=== PATIENT | male | born 1965 | race Caucasian/White ===

== ENCOUNTER 2017-04-15 18:05 | Inpatient (IN) | payer OTHER ==
[~2017-04-15] VITALS: Ht 185.4 cm; Wt 110.8 kg
--- NOTE | ~2017-04-15 | EKG ---
[place] [address] [address] [place] [address] ELECTROCARDIOGRAM REPORT Name: CHINO CHADWICK Room #: REG ASHLIE Brown#: [id number] Admission: 04/15/17 Attend Phys: Discharge: Date of : 67 Report #: [id number] THIS REPORT FOR: //name// [facility] ED Test Date: 2017-04-15 Test Time: 19:25:32 Pat Name: CHINO CHADWICK Department: Room: Gender: Director Client Services: Niecy WOODY : 1965 Requested By: Tereso Geller Order Number: [id number] MD: Alfredo Myrick Measurements Intervals Adrian Rate: 111 P: 43 CT: 166 QRS: -32 QRSD: 95 T: 105 QT: 362 QTc: 492 Interpretive Statements Sinus tachycardia Left atrial enlargement Left axis deviation Probable anteroseptal infarct, recent No previous ECG available for comparison Electronically Signed On 04-15-2017 22:00:11 NUTRITION THERAPIST by Alfredo Myrick [email or web address] <ELECTRONICALLY SIGNED> By: Alfredo Myirck MD 04/15/170 24 192 Alfredo Myrick MD /RUDY
--- NOTE | ~2017-04-15 | 2DMMODE ---
[facility] [address] [place] [address] 2 D/M-MODE ECHOCARDIOGRAM Name: CHINO CHADWICK Room #: 361-P ADM IN M.R.#: [id number] Admission: 04/15/17 Attend Phys: Hiram Torres Discharge: Date of : 67 Date of Service: 04/16/17 1340 Report #: [id number] THIS REPORT FOR: //name// APPROVED REPORT Study performed: 04/16/2017 13:41:45 EXAM: Comprehensive 2D, Doppler, and color-flow Echocardiogram Patient Location: Echo lab Room #: [facility] Status: routine BSA: 2.31 BP: 100/69 mmHg Other Information Study Quality: Good, Technically Difficult Technically limited study due to Combative patient, inability to position patient. Indications Congestive Heart Failure Diabetes Murmur Chest Pain 2D Dimensions RVDd: 46.95 mm LVEF(%): 18.65 (>50%) IVSd: 11.15 (7-11mm) LVOT Diam: 22.52 (18-24mm) LVDd: 65.80 mm PWd: 11.82 (7-11mm) Ascending Ao: 31.82 (22-36mm) LVDs: 60.10 (25-40mm) Aortic Root: 31.60 mm IVC: 26.00 mm Greenberg's LVEF: 18.65 % Volumes Left Atrial Volume (Systole) Single Plane 4CH: 124.23 mL Single Plane 2CH: 115.73 mL LA ESV Index: 57.00 mL/m2 Aortic Valve AoV Peak Tristin.: 1.04 m/s AO Peak Gr.: 4.30 mmHg LVOT Max P.69 mmHg LVOT Max V: 0.82 m/s CORDELL Vmax: 3.15 cm2 [facility] [address] [employer] [address] [place] [address] 2 D/M-MODE ECHOCARDIOGRAM Name: NETTACHINO Room #: 361-P [facility] IN .R.#: [id number] Admission: 04/15/17 Attend Phys: Hiram Harper [facility] Discharge: Date of : 67 Date of Service: 04/16/17 1340 Report #: [id number] Mitral Valve E/A Ratio: 2.3 MV Decel. Time: 110.38 ms MV E Max Tristin.: 1.29 m/s MV A Tristin.: 0.57 m/s MV PHT: 32.01 ms IVRT: 72.66 ms Pulmonary Valve PV Peak Tristin.: 0.97 m/s PV Peak Gr.: 3.78 mmHg Tricuspid Valve TR Peak Tristin.: 2.84 m/s RAP Estimate: 15.00 mmHg TR Peak Gr.: 32.36 mmHg PA Pressure: 47.00 mmHg Left Ventricle Left ventricle is dilated. There is normal left ventricular wall thickness. Left ventricular systolic function is severely decreased. LVEF is approx 20% Right Ventricle Right ventricle is dilated. Right ventricle is hypokinetic. Atria Left atrium is severely dilated. Right atrium is dilated. Aortic Valve The aortic valve is normal in structure. Mild aortic regurgitation. There is no aortic valvular stenosis. Mitral Valve The mitral valve is mildly thickened. Moderate mitral regurgitation. No evidence of mitral valve stenosis. Tricuspid Valve The tricuspid valve is normal in structure. Severe tricuspid regurgitation. PAP is estimated at 47 mmHg. Pulmonic Valve The pulmonary valve is normal in structure. Mild pulmonic regurgitation. [employer] [facility] [address] [address] [place] [address] 2 D/M-MODE ECHOCARDIOGRAM Name: CHINO CHADWICK Room #: 361-P ADM IN M.R.#: [id number] Admission: 04/15/17 Attend Phys: Hiram Torres Discharge: Date of : 67 Date of Service: 04/16/17 1340 Report #: [id number] The aortic root is normal in size. IVC is dilated and collapses <50% with inspiration. Pericardium There is no pericardial effusion. <Conclusion> Left ventricle is dilated. LVEF is approx 20% Right ventricle is dilated. Right ventricle is hypokinetic. The aortic valve is normal in structure. Mild aortic regurgitation. The mitral valve is mildly thickened. Moderate mitral regurgitation. The tricuspid valve is normal in structure. Severe tricuspid regurgitation. PAP is estimated at 47 mmHg. The pulmonary valve is normal in structure. Mild pulmonic regurgitation. There is no pericardial effusion. <ELECTRONICALLY SIGNED> By: Naresh Barton MD 04/16/17 1340 39 39 Naresh Barton MD /INF
--- NOTE | ~2017-04-15 | CNG ---
[facility] [place] [address] CYTO-NONGYN REPORT PROCEDURE Name: FAIZARADHAPRAVEEN Khan Room #: 361-P ADM IN M.R.#: [id number] Admission: 04/15/17 Date of : 67 Discharge: Report #: [id number] Path Case #: [id number] CYTOPATHOLOGY REPORT COLLECTION DATE: 04/17/2017 RECEIVED DATE: 04/17/2017 SUBMITTING PHYS: Dr. Hiram Temple OTHER PHYS: Dr. Nnamdi Arrieta CLINICAL HISTORY: Hypoxia, Shortness of breath, brain cancer SPECIMEN(S) RECEIVED: A.Pleural fluid * * * * * * * * * * * * FINAL DIAGNOSIS: A. Pleural fluid: - No malignant epithelial cells identified. Reactive mesothelial cells are present. PATHOLOGIST: Nuvia Mike M.D. REPORT ELECTRONICALLY SIGNED BY: Nuvia Mike M.D. DATE/TIME: 04/20/2017 15:48 * * * * * * * * * * * * GROSS PATHOLOGY: A. Pleural fluid: The specimen is submitted unfixed, labeled "Praveen Chadwick". Received by the Cytology Department is 17 mL of clear yellow fluid. One ThinPrep slide and a formalin fixed cell block were prepared. (mm 04.17.2017) HEALTH CARE FACILITIES INSPECTOR(S): CELY Romero[facility] INITIAL CPT CODE(S): A; 27853, 19347 Professional services performed by [facility] at [facility] [address], [place] [address] Technical services performed by [facility] at [address] [place] [address]., [address], [place] [address]. [facility] [address] [place] [address], [address] [place] [address] PHONE: [phone] DIRECTOR: Taj Fernandez M.D. [facility] [address] [place] [address] CYTO-NONGYN REPORT PROCEDURE Name: PRAVEEN CHADWICK Room #: 361-P ADM IN M.R.#: [id number] Admission: 04/15/17 Date of : 67 Discharge: Report #: [id number] Path Case #: [id number] * * * END OF REPORT * * *
--- NOTE | ~2017-04-15 | HC ---
[facility] [place] [address] [place] [address] CONSULTATION Name: CHINO CHADWICK Room #: 361-P [facility] IN M.R.#: [id number] Admission: 04/15/17 Attend Phys: Hiram Temple Discharge: Date of : 67 Report #: [id number] THIS REPORT FOR: //name// CC: FAM unknown Hiram Temple DATE OF SERVICE: 04/20/2017 HISTORY OF PRESENT ILLNESS: This is a 51-year-old white male with history of diabetes mellitus, COPD, prior coronary artery bypass grafting, history of bipolar disorder, prior multiple mild strokes, severe cardiomyopathy who was admitted with problems with gait and speech. There was a questionable history of terminal brain cancer, although it does not appear that the hospital records from outside facility support this. He was seen by Pulmonary Medicine diagnosed with a right pleural effusion, who underwent large volume thoracentesis transition thought likely related to underlying congestive heart failure. He was noted to have acute on chronic systolic left and right heart failure, although he did refuse his diuretics before. He was noted to have ascites, encephalopathy and cellulitis. Recommendation was for nocturnal CPAP, although he was not cooperative with this. We are seeing him in rehabilitation medicine consultation. PAST MEDICAL HISTORY: There is a note of bipolar disorder, multiple mild strokes as noted, he apparently has a severe cardiomyopathy and case management notes indicate that a LifeVest was arrived to the patient's mother's home. The patient apparently has not allowed his family to attend medical appointments with him. MEDICATIONS: Please see the full medication listing. SOCIAL HISTORY: The patient had been living with his parents up to about a year ago and then recently moved in with 3 roommate. The patient's mother did not know where that address or where he currently lives is. He is using a cane to get around. REVIEW OF SYSTEMS: He did not offer any current complaints of chest pain, shortness of breath, abdominal discomfort. PHYSICAL EXAMINATION: A 51-year-old white male with sleeping would easily arouse, appeared older than stated age. He was uncertain which day it was. He could follow basic 1-step commands without difficulty. He does have significant lower extremity edema 1 to 2+ upper extremities, multiple tattoos, functional range of motion strength is probably grade 4-/5. Lower extremities functional range of motion strength is probably a grade 3+ to 4-/5. Transfers have been contact guard and he has ambulated 5 feet contact guard. [facility] [address] [place] [address] CONSULTATION Name: CHINO CHADWICK Room #: 361-P [facility] IN ..#: [id number] Admission: 04/15/17 Attend Phys: Hiram Temple Discharge: Date of : 67 Report #: [id number] ASSESSMENT: A 51-year-old white male with the following problem list: 1. Acute on chronic systolic left and right heart failure. 2. Right pleural effusion. 3. Severe cardiomyopathy. He had a LifeVest delivered to his parents' home. 4. Ascites 5. Encephalopathy. 6. Question of a terminal brain tumor, although medical records apparently do not support this. This is what the patient has been saying, however. 7. Substance abuse. 8. Diabetes mellitus type 2. PLAN: I agree with discharge disposition to a half-way facility unit as per the discharge dictation. Case management indicates that the patient's mother stated that the patient is unable to live independently. Thank you for asking us to assist in this patient's care. <ELECTRONICALLY SIGNED> By: Mike Nathan MD 04/23/17 [id number] Mike Nathan MD /[facility]
--- NOTE | ~2017-04-15 | HC ---
[facility] [place] [place] [address] CONSULTATION Name: CHINO CHADWICK Room #: 361-P ADM IN M.R.#: [id number] Admission: 04/15/17 Attend Phys: Hiram Temple Discharge: Date of : 67 Report #: [id number] THIS REPORT FOR: //name// CC: FAM unknown Hiram Temple DATE OF SERVICE: 04/16/2017 REFERRING PROVIDER: Hiram Temple MD REASON FOR CONSULTATION: Shortness of breath and hypoxemia. HISTORY OF PRESENT ILLNESS: Our group is called late this morning for consultation on this patient. The patient is difficult to arouse, very somnolent and received some morphine earlier today and some Haldol due to lack of cooperation with healthcare providers, unable to get any history from the patient at this time. Currently, mother is somewhat estranged and does not have additional history. History taken from review of records and discussion with healthcare providers. He is a 51-year-old male with a known history of coronary artery disease with coronary artery bypass grafting, unclear time frame, as well as history of COPD, diabetes mellitus type 2, presented to the Emergency Department yesterday evening with complaints of increased shortness of breath, apparently has no cough or congestion. Does have a history of congestive heart failure. Chest x-ray and then CT chest PE protocol revealed moderate-sized right pleural effusion without infiltrates to suggest pneumonia. Head CT was done due to his reported history of brain cancer, although CT without contrast was clear, no acute process. The patient denied being on any therapy. As described overnight, received some diuresis, was having some combativeness, was removing pulse oximetry and other monitoring devices, was sedated with 1 mg of Haldol, now is not responsive in fact at bedside. The patient is having periodic breathing with periods of apnea and hyperpnea, intermittent, otherwise does not appear in any distress at this time. Of note was also started on vancomycin for presumed cellulitis over his left lower extremity. ALLERGIES: None known. PAST MEDICAL HISTORY: 1. History of coronary artery disease with coronary artery bypass grafting. 2. History of congestive heart failure of unclear ejection fraction. 3. Diabetes mellitus type 2. 4. Underlying COPD, severity not quantified. 5. ? History of malignancy of the brain. 6. History of tobacco use. 7. History of substance abuse including methamphetamine. SOCIAL HISTORY: Tobacco use, substance abuse as described. [address] [address] CONSULTATION Name: CHINO CHADWICK Room #: 361-P [facility] IN M.R.#: [id number] Admission: 04/15/17 Attend Phys: Hiram Temple Discharge: Date of : 67 Report #: [id number] FAMILY HISTORY: Unobtainable due to his current status. REVIEW OF SYSTEMS: Otherwise, unobtainable due to his current neurologic status. PHYSICAL EXAMINATION: VITAL SIGNS: He is somewhat hypothermic, temperature is 35.7, pulse 100 and regular, respiratory rate 16, blood pressure 100/69, oxygen saturation 98% on 4 liters. GENERAL: This is a middle-aged male, very somnolent, difficult to arouse, but arousable to his name and stimulant. ENT: Dental caries noted with a dry oropharynx. NECK: Supple, no lymphadenopathy. LUNGS: Diminished, but relatively clear, only occasional wheezes noted. CARDIOVASCULAR: Heart was regular, harsh 2/6 systolic murmur best heard at the left sternal border was appreciated. Pulses were palpable throughout, only slightly diminished in the lower extremities. ABDOMEN: Soft, nontender, no masses. EXTREMITIES: Revealed 2+ lower extremity edema with significant erythema of the distal right lower extremity with some significant erythema. INTEGUMENT: Revealed multiple areas of small excoriated lesions in both upper and lower extremities, but not observed over the trunk. LABORATORY DATA: White blood cell count 11,000; hemoglobin 13; hematocrit 42; platelet count 197. Sodium was 134, potassium 3.2, chloride 98, bicarbonate 27, BUN 17, creatinine 0.9, glucose 302. Total bilirubin 1.4, alkaline phosphatase 264, ____ 324. CT scan of the chest revealed significant cardiomegaly with moderate right pleural effusion, small left pleural effusion, no significant infiltrates noted. Arterial blood gas on 4 liters revealed a pH 7.46, pCO2 is 38, pO2 is 63, bicarbonate 25. Lactate 2.03. INR 1.2. Urine drug screen positive for opiates and amphetamines. Urinalysis without significant pyuria, glucosuria noted. IMPRESSION: 1. Altered mental status, likely multifactorial including medications that were administered by the hospital in addition to possible encephalopathy related to acute illness. 2. Right lower extremity cellulitis, possible erysipelas. 3. Periodic breathing likely secondary to encephalopathy. We will check a thyroid stimulating hormone and echocardiogram to evaluate for possible other metabolic etiologies of periodic breathing. 4. Right pleural effusion. Would not perform thoracentesis at this time. Would see how he responds to diuresis, although thoracentesis should be strongly considered. 5. Cardiomyopathy, ejection fraction uncertain. [facility] [address] [place] [address] CONSULTATION Name: CHINO CHADWICK Room #: 361-P ADM IN M.R.#: [id number] Admission: 04/15/17 Attend Phys: Hiram Temple Discharge: Date of : 67 Report #: [id number] 6. Probable valvular heart disease based on exam. 7. Substance abuse including tobacco and probable methamphetamine. 8. Diabetes mellitus, poorly controlled at this time, unclear if it is an acute or chronic process or both. SUGGESTIONS: 1. Add Rocephin. 2. Continuous oximetry. 3. Check echocardiogram. 4. Continue vancomycin. 5. Await cultures. 6. Hold any sedating medications. 7. Continue to observe for possible phenomena. 8. Low threshold to transfer to ICU for continued monitoring and management. 9. Consider abdominal imaging given elevated alkaline phosphatase and total bilirubin. 10. We will continue to follow with you. By: 1201 2320 Nnamdi Arrieta MD /nt
[2017-04-15 18:08] VITALS: BP 124/78
[2017-04-15 18:34] LABS: ABSOLUTE NEUTROPHILS 10.7 thou/uL (1.4-8.2); BASOPHILS 0.4 % (0.0-2.0); EOSINOPHILS 0.4 % (0.0-3.0); HEMATOCRIT 41.2 % (42.0-52.0); HEMOGLOBIN 12.4 gm/dL (14.0-18.0); LYMPHOCYTES 11.7 % (24.0-44.0); MCH 25.1 pg (26.0-34.0); MCHC 30.2 g/dL (28.0-37.0); MONOCYTES 10.5 % (1.0-8.0); PLATELET COUNT 220 thou/uL (150-400); RBC 4.96 mil/uL (4.50-6.00); RDW 17.9 % (10.5-14.5); WBC 13.9 thou/uL (4.0-11.0)
[2017-04-15 18:35] LABS: MANUAL DIFF NO
[2017-04-15 18:41] LABS: ABG SAMPLE TYPE ARTERIAL; BE(vivo) -4.1 mmol/L (-2 to +3); HCO3 20.4 mmol/L (22.0-26.0); LACTATE 3.31 mmol/L (0.5-2.0); O2(CT) 13.4 mL/dL (15.0-23.0); O2Hb 70.7 % (92.0-98.0); PCO2 35.5 mmHg (35.0-45.0); pH 7.377 (7.360-7.450); sO2 75.6 % (92.0-98.0); tCO2 21.5 mmol/L (24.0-30.0)
[2017-04-15 18:42] LABS: PO2 40.9 mmHg (80.0-100.0); STICK SITE R.BRACHIAL
[2017-04-15 18:49] LABS: ANION GAP 9 mmol/L (7-16); BUN 19 mg/dL (7-18); CALCIUM 8.8 mg/dL (8.5-10.1); CHLORIDE 95 mmol/L (98-107); CO2 25 mmol/L (21-32); SODIUM 129 mmol/L (136-145)
[2017-04-15 18:50] LABS: GLUCOSE 665 mg/dL (74-106)
[2017-04-15 18:56] LABS: ALBUMIN 3.3 g/dL (3.4-5.0); ALKALINE PHOSPHATASE 262 U/L (46-116); SGOT 48 U/L (15-37); SGPT 55 U/L (30-65); TOTAL BILIRUBIN 1.8 mg/dL (<0.1-1.0); TOTAL PROTEIN 7.2 g/dL (6.4-8.2); TROPONIN-I < 0.04 ng/mL (<0.06)
[2017-04-15 21:44] LABS: URINE BILIRUBIN NEGATIVE (Negative); URINE BLOOD NEGATIVE (Negative); URINE COLOR YELLOW; URINE GLUCOSE-RANDOM* 3+ (Negative); URINE KETONES NEGATIVE (Negative); URINE LEUKOCYTES-REFLEX NEGATIVE (Negative); URINE PROTEIN (DIPSTICK) TRACE (Negative); URINE UROBILINOGEN 0.2 E.U./dl (0.2-1.0)
[2017-04-15 21:53] LABS: AMP/METHAMP POSITIVE (Negative); BARBITURATES Negative (Negative); BENZODIAZEPINES Negative (Negative); COCAINE Negative (Negative); METHADONE Negative (Negative); OPIATES POSITIVE (Negative); PCP Negative (Negative); THC Negative (Negative)
[2017-04-15 21:58] LABS: ABG SAMPLE TYPE ARTERIAL; BE(vivo) -0.4 mmol/L (-2 to +3); HCO3 22.1 mmol/L (22.0-26.0); LACTATE 2.23 mmol/L (0.5-2.0); O2(CT) 18.4 mL/dL (15.0-23.0); O2Hb 94.6 % (92.0-98.0); PCO2 30.2 mmHg (35.0-45.0); PO2 79.3 mmHg (80.0-100.0); STICK SITE R.BRACHIAL; pH 7.482 (7.360-7.450); sO2 96.6 % (92.0-98.0)
[2017-04-15 22:33] LABS: INR 1.2; PROTIME 12.7 Seconds (9.3-11.4)
[2017-04-15 23:39] VITALS: BP 139/95
[2017-04-16 00:15] VITALS: BP 131/106
[2017-04-16 04:12] LABS: HEMATOCRIT 41.5 % (42.0-52.0); MCH 25.4 pg (26.0-34.0); MCHC 31.3 g/dL (28.0-37.0); MCV 81.2 fL (80.0-100.0); RBC 5.12 mil/uL (4.50-6.00); RDW 17.6 % (10.5-14.5); WBC 11.4 thou/uL (4.0-11.0)
[2017-04-16 04:20] VITALS: BP 138/95
[2017-04-16 04:20] LABS: ALBUMIN 3.2 g/dL (3.4-5.0); CALCIUM 8.6 mg/dL (8.5-10.1); CREATININE 0.9 mg/dL (0.7-1.3); POTASSIUM 3.2 mmol/L (3.5-5.1); TOTAL BILIRUBIN 1.4 mg/dL (<0.1-1.0)
[2017-04-16 07:58] VITALS: BP 131/96
[2017-04-16 11:35] VITALS: BP 100/69
[2017-04-16 11:43] LABS: ABG SAMPLE TYPE ARTERIAL; BE(vivo) 2.1 mmol/L (-2 to +3); HCO3 25.8 mmol/L (22.0-26.0); O2Hb 90.3 % (92.0-98.0); PCO2 37.5 mmHg (35.0-45.0); PO2 62.5 mmHg (80.0-100.0); pH 7.456 (7.360-7.450); sO2 93.1 % (92.0-98.0)
[2017-04-16 11:46] LABS: LACTATE 2.03 mmol/L (0.5-2.0); STICK SITE R.RADIAL
[2017-04-16 12:07] LABS: GLYCOHEMOGLOBIN (HGB A1C) 12.8 % (4.8-5.6)
[2017-04-16 16:18] VITALS: BP 113/70
[2017-04-16 20:00] VITALS: BP 101/75
[2017-04-17 04:20] VITALS: BP 110/61
[2017-04-17 07:53] VITALS: BP 141/91
[2017-04-17 12:08] LABS: CALCIUM 8.7 mg/dL (8.5-10.1); POTASSIUM 3.8 mmol/L (3.5-5.1)
[2017-04-17 13:22] LABS: CLARITY HAZY; COLOR YELLOW; MANUAL DIFF YES; TOTAL VOLUME 60 mL
[2017-04-17 13:30] LABS: BF NUCLEATED CELLS 913; BF RBC 832
[2017-04-17 14:24] LABS: BF MACROPHAGE 0; BF NEUTROPHILS 9
[2017-04-17 19:30] VITALS: BP 127/80
[2017-04-18 07:26] VITALS: BP 115/77
[2017-04-18 13:26] LABS: ALBUMIN 2.8 g/dL (3.4-5.0); CALCIUM 8.2 mg/dL (8.5-10.1); CREATININE 0.8 mg/dL (0.7-1.3); PHOSPHORUS 3.4 mg/dL (2.5-4.9); POTASSIUM 3.7 mmol/L (3.5-5.1)
[2017-04-18 14:08] LABS: BODY FLUID ALBUMIN 1.2 g/dL (()); BODY FLUID AMYLASE 23 U/L (()); BODY FLUID GLUCOSE 338 mg/dL (()); BODY FLUID LDH 134 IU/L (()); BODY FLUID PROTEIN 2.1 g/dL (())
[2017-04-18 15:08] VITALS: BP 118/63
[2017-04-18 20:00] VITALS: BP 91/62
[2017-04-19 07:30] VITALS: BP 103/67
[2017-04-19 15:26] VITALS: BP 99/60
[2017-04-19 20:00] VITALS: BP 96/57
[2017-04-20 04:00] VITALS: BP 90/66
[2017-04-20 07:00] VITALS: BP 106/75
[2017-04-20 08:00] VITALS: BP 106/75
[2017-04-20] MEDS ORDERED: ACETAMINOPHEN325 M1 PO (09:14)
[2017-04-20] MEDS ORDERED: GLYBURIDE 5 MG T5 M1 PO (09:14)
[2017-04-20] MEDS ORDERED: LANTUS SUBQ (09:14)
[2017-04-20] MEDS ORDERED: KEFLEX500 M1 PO (09:14)
[2017-04-20] MEDS ORDERED: LASIX 40 MG TAB40 M1 PO (09:14)
[2017-04-20] MEDS ORDERED: CARVEDILOL3.125 MG PO (09:14)
[2017-04-20] MEDS ORDERED: HUMALOG100 UNIT/1 SUBQ (09:14)
[2017-04-20] MEDS ORDERED: TRAZODONE HCL50 MG PO (09:14)
[2017-04-20] MEDS ORDERED: ALBUTEROL2.5 MG/0.5 INH (09:14)
[2017-04-20 11:50] VITALS: BP 103/64
[2017-04-20 15:37] VITALS: BP 109/82
[2017-04-20 20:11] VITALS: BP 101/67
[2017-04-21 05:00] VITALS: BP 99/72
[2017-04-21 07:15] VITALS: BP 89/55
[2017-04-21 11:35] VITALS: BP 102/62
[2017-04-21 16:34] VITALS: BP 100/65
[2017-04-21 21:01] VITALS: BP 95/72
[2017-04-22] VITALS (7 sets, daily range): BP systolic 90–129; BP diastolic 62–83
[2017-04-23 03:48] VITALS: BP 97/65
[2017-04-23 07:56] VITALS: BP 92/50
[2017-04-23 11:26] VITALS: BP 113/86
[2017-04-23 14:51] LABS: CALCIUM 8.5 mg/dL (8.5-10.1); CREATININE 0.7 mg/dL (0.7-1.3); POTASSIUM 4.2 mmol/L (3.5-5.1)
[2017-04-23 15:00] LABS: PHOSPHORUS 4.7 mg/dL (2.5-4.9)
[2017-04-23 15:15] LABS: ALBUMIN 2.8 g/dL (3.4-5.0)
[2017-04-23 16:06] VITALS: BP 112/81
[2017-04-23 19:50] VITALS: BP 106/80
[2017-04-24 05:40] VITALS: BP 109/75
[2017-04-24 07:42] VITALS: BP 111/54
[2017-04-24 11:56] VITALS: BP 114/80
== END 2017-04-24 19:40 | DRG 871 ==
LOC: ER 18:05 → 3W 22:16 → EROBS 22:16 → 3W 23:50
PROVIDERS: Hospitalist; Internal Medicine Pulmonary Disease; Nurse Practitioner Family; Physician Assistant
PROC: 0W993ZZ Drainage of Right Pleural Cavity, Percutaneous Approach (ICD-10-PCS; principal; 2017-04-16)
DX: A41.9 Sepsis, unspecified organism (principal); I50.23 Acute on chronic systolic (congestive) heart failure; L03.115 Cellulitis of right lower limb; J90 Pleural effusion, not elsewhere classified; I42.9 Cardiomyopathy, unspecified; R18.8 Other ascites; J44.9 Chronic obstructive pulmonary disease, unspecified; F17.210 Nicotine dependence, cigarettes, uncomplicated; F31.9 Bipolar disorder, unspecified; D72.820 Lymphocytosis (symptomatic); R09.02 Hypoxemia; E11.65 Type 2 diabetes mellitus with hyperglycemia; F15.10 Other stimulant abuse, uncomplicated; I25.10 Atherosclerotic heart disease of native coronary artery without angina pectoris; Z95.1 Presence of aortocoronary bypass graft; Z86.73 Personal history of transient ischemic attack (TIA), and cerebral infarction without residual deficits; Z85.841 Personal history of malignant neoplasm of brain; I25.2 Old myocardial infarction; Z79.899 Other long term (current) drug therapy; Z23 Encounter for immunization; Z91.19 Patient's noncompliance with other medical treatment and regimen
CPT/HCPCS: 10779